=== PATIENT | female | born 1995 | race Caucasian/White ===

== ENCOUNTER 2020-06-13 16:57 | Emergency (ER) | payer BC ==
[~2020-06-13] VITALS: Ht 160 cm; Wt 61.2 kg
[2020-06-13 17:08] VITALS: BP 112/64
--- NOTE | 2020-06-13 17:08 | NUR ---
PT AMBULATED TO BATHROOM, STEADY GAIT.
--- NOTE | 2020-06-13 17:30 | NUR ---
24 Y/F PRESENTS TO ED FOR L LEG NUMBNESS X 1 WEEK, DENIES INJURY. REPORTS R LEG NUMBNESS STARTED X 1 DAY, PT DENIES INJURY. PT ALSO REPORTS NEAR SYNCOPY X 1 DAY.
[2020-06-13 18:53] VITALS: BP 112/64
--- NOTE | 2020-06-13 18:53 | NUR ---
Patient discharged with v/s stable. Written and verbal after care instructions given and explained. Patient alert, oriented and verbalized understanding of instructions. Ambulatory with steady gait. All questions addressed prior to discharge. ID band removed. Patient advised to follow up with PMD. Rx of MEDROL & MOTRIN given. Patient educated on indication of medication including possible reaction and side effects. Opportunity to ask questions provided and answered.
== END 2020-06-13 18:53 | disposition home or self-care (01) ==
LOC: MED 16:57
DX: M54.41 Lumbago with sciatica, right side (principal); R20.0 Anesthesia of skin; R42 Dizziness and giddiness
CPT/HCPCS: 81002; 81025; 93005; 99283